=== PATIENT | female | born 1980 | race Caucasian/White ===

== ENCOUNTER 2016-12-16 17:36 | Day surgery (SDC) | payer OTHER ==
[~2016-12-16] VITALS: Ht 165.1 cm; Wt 83.6 kg
[~2016-12-16 17:36] MED LIST: ENDOCET 5-3251 EACH PO; IBUPROFEN800 MG PO; NEXIUM20 MG PO; PRENATAL TABLE1 EAC3 PO
[2016-12-16 18:03] LABS: HEMATOCRIT 42.4 % (36.0-46.0); MCH 29.9 PG (29.0-34.0); MCV 90.4 FL (83-99); RBC DIS.WIDTH-CV 13.2 % (11.8-14.6); RBC DIS.WIDTH-SD 43.3 % (39-53); RED BLOOD COUNT 4.69 M/uL (3.80-5.20); WHITE BLOOD COUNT 16.7 K/uL (4.1-10.2)
[2016-12-16 18:11] LABS: CHLORIDE 107 mEq/L (99-109); POTASSIUM 3.9 mEq/L (3.7-5.4); SODIUM 137 mEq/L (136-147)
[2016-12-16 18:13] LABS: GLUCOSE 96 mg/dL (70-99)
[2016-12-16 18:14] LABS: ADD MIUA? NO; BILIRUBIN NEGATIVE; BLOOD NEGATIVE; COLOR YELLOW ((YELLOW)); GLUCOSE (STRIP) NEGATIVE; KETONES NEGATIVE; LEUKOCYTES NEGATIVE; NITRITE NEGATIVE; PROTEIN (STRIP) NEGATIVE; SPECIFIC GRAVITY 1.018 (1.000-1.030); UCUL ADDED? NO; UROBILINOGEN 0.2 MG/DL (0.2-1.0)
[2016-12-16 18:15] LABS: ANION GAP 9 MEQ/L (2-14); TOTAL BILIRUBIN 0.2 mg/dL (0.0-1.0)
[2016-12-16 18:17] LABS: ALKALINE PHOSPHATASE 74 IU/L (3-129); GFR ESTIMATE (CALCULATED) > 59 mL/min/
[2016-12-16 18:18] LABS: UREA NITROGEN (BUN) 15 mg/dL (9-23)
[2016-12-16 18:26] LABS: QUANTITATIVE HCG < 4.0 MIU/ML
[2016-12-16 19:08] LABS: MEAN PLAT.VOLUME 10.4 uM^3 (9.5-12.4); PLATELET COUNT 277 K/uL (156-360)
[2016-12-17 00:21] VITALS: BP 108/57
[2016-12-17 03:18] VITALS: BP 92/50
[2016-12-17 07:35] VITALS: BP 97/55
[2016-12-17 11:56] VITALS: BP 95/52
[2016-12-17 15:15] VITALS: BP 84/57
[2016-12-17] MEDS ORDERED: ENDOCET 5-3251 EACH PO (16:01)
[2016-12-17] MEDS ORDERED: COLACE100 MG PO (16:01)
== END 2016-12-17 18:02 | disposition home or self-care (01) ==
LOC: EME 17:36 → SDC 21:35 → EME 21:35 → 2SOUTH 23:02 → 2EASTP 23:02 → 2SOUTH 23:02 → 2EASTP 12-17 00:17
PROC: 0DTJ0ZZ Resection of Appendix, Open Approach (ICD-10-PCS; principal; 2016-12-16)
DX: K35.80 Unspecified acute appendicitis (principal); F17.210 Nicotine dependence, cigarettes, uncomplicated; Z83.3 Family history of diabetes mellitus; Z82.49 Family history of ischemic heart disease and other diseases of the circulatory system; Z82.0 Family history of epilepsy and other diseases of the nervous system
CPT/HCPCS: 74177; 80053; 81003; 84702; 85027; 88304; 99281; 99285; G0378; J0330; J1100; J1170; J1885; J2175; J2250; J2405; J2543; J2710; J3010; J7040; J7120